=== PATIENT | male | born 1990 | race Two or more races ===

== ENCOUNTER 2024-11-10 11:24 | Emergency (ER) | payer MEDICAID, SELFPAY ==
[2024-11-10 11:54] VITALS: BP 128/83; PULSE 98; RESP 20; TEMP 37.3; O2SAT 95; BMI 34.4
--- NOTE | 2024-11-10 12:11 | PD.EDDIZZY ---
ED Dizzyness RME/HPI General Chief Complaint: Dizziness Stated Complaint: DIZZY, SHAKINESS, STIFF HANDS/FEET X 3 DAYS Time Seen by Provider: 11/10/24 12:06 Arrival date/time: 11/10/24 11:24 RME / HPI RME / HPI Narrative: 34-year-old male patient came in for evaluation regarding dizziness. Onset of symptoms about 3 days prior to ER visit as sudden onset of dizziness, shakiness, and noticed also tingling sensation bilateral upper and lower extremity. Patient denies any headache denies any focal neurologic deficit. Denies any head trauma or fall denies any fever. Denies any other complaints. Patient is taking hypertension medication. Related Data Previous Rx's ?Medication ?Instructions ?Recorded ibuprofen 800 mg tablet 800 mg PO TID PRN pain #30 tabs 11/10/24 meclizine 50 mg tablet 50 mg PO BID PRN dizziness #20 tabs 11/10/24 Allergies Allergy/AdvReac Type Severity Reaction Status Date / Time No Known Allergies Allergy Verified 11/10/24 11:29 Review of Systems Review of Systems Narrative Review of Systems: Review of system reviewed and within normal limits except mentioned in HPI ED Exam Narrative Physical exam: VITAL SIGNS: Reviewed. GENERAL APPEARANCE: Alert and interactive, follows commands, no acute distress, HEAD AND FACE: Non-traumatic. ENT: PERRL, pink conjunctivitis, eyelid no trauma, Mucous membrane moist. NECK: Supple, nontender, no nuchal rigidity. CHEST: No tenderness, no crepitus, no paradoxical movement, no retractions. LUNGS: Clear, well ventilated, symmetric, no rales, no wheezing, no ronchi, no stridor, good breath sounds bilaterally. HEART: Regular rate, regular rhythm, no murmur, no gallops. ABDOMEN: Soft, positive bowel sounds, nondistended, no guarding, nontender, no rebound, no masses, RECTAL: Deferred. GENITAL: Deferred. NEUROLOGICAL: Gross motor function intact sensory function intact, Appropriate for age. MUSCULOSKELETAL: low back nontender, full range of motion. EXTREMITIES: Nontender, full range of motion. SKIN: Color pink, dry, no rash, no lacerations, no abrasions, no contusions. LYMPHATICS: Deferred. Course Quality Measures none Orders Category Date Time Status EKG (ED ONLY) *Do not use* NOW Care 11/10/24 12:[address] head/brain wo con Stat Exams 11/10/24 12:13 Completed EKG (ED Only) Stat Exams 11/10/24 12:14 Draft CBC Stat Lab 11/10/24 12:24 Completed Comprehensive Metabolic Panel Stat Lab 11/10/24 12:24 Completed Partial Thromboplastin Time Stat Lab 11/10/24 12:24 Completed Troponin I Stat Lab 11/10/24 12:24 Completed Urinalysis, C/S if Indicated Stat Lab 11/10/24 12:36 Completed Acetaminophen Tab [Tylenol ES Tab] Med 11/10/24 12:13 Discontinued 1,000 mg PO X1 ONE Meclizine HCl [Antivert] Med 11/10/24 12:13 Discontinued 50 mg PO X1 ONE Vital Signs Vital signs: Vital Signs Temperature 99.1 F 11/10/24 11:54 Pulse Rate 98 11/10/24 11:54 Respiratory Rate 20 11/10/24 11:54 Blood Pressure 128/83 11/10/24 11:54 Pulse Oximetry (%) 95 11/10/24 11:54 Oxygen Delivery Method Room Air 11/10/24 11:54 Dizziness MDM Narrative MDM Narrative:: 34-year-old male patient came in for evaluation regarding dizziness. Onset of symptoms about 3 days prior to ER visit as sudden onset of dizziness, shakiness, and noticed also tingling sensation bilateral upper and lower extremity. Patient denies any headache denies any focal neurologic deficit. Denies any head trauma or fall denies any fever. Denies any other complaints. Patient is taking hypertension medication. CT scan of the head came back unremarkable. Patient's workup today all came back normal including EKG that showed normal sinus rhythm, ventricular rate of 91 bpm, no ST segment elevation or depression noted. Patient was given Tylenol and meclizine with significant improvement of symptoms. Patient appears nontoxic and hemodynamically stable .Decision to discharge the patient. The patient/family was given an opportunity to ask questions and understood their discharge instructions. Discharge instructions specifically included follow up provider and time frame, current and/or new medications and possible side effects, indications for sooner follow up or return to the emergency department, and the expected course of current diagnosis. Patient reports feeling better as well and giving evidence of significant clinical improvement, I believe patient is now a candidate for discharge. Patient data External records reviewed:: None Clinical information provided by:: patient Social determinants that could affect healthcare access:: none Patient has the following chronic illnesses:: None How is presenting disease/condition affected by chronic disease/condition?: no chronic disease Evaluation data The following diagnostics were reviewed and interpreted by me:: lab results, radiology exam(s) and EKG tracing(s) Lab and/or radiology exams considered but not ordered:: none Interpretation Summary: See results in [facility] Medications / Prescriptions Medications or Prescriptions considered but not ordered:: None Medication administrations:: Medication Administration History Discontinued Medications Acetaminophen (Acetaminophen 500 Mg Tablet) 1,000 mg PO X1 ONE Stop: 11/10/24 12:14 Last Admin: 11/10/24 12:23 Dose: 1,000 mg Documented By: LUCA Meclizine HCl (Meclizine Hcl 25 Mg Tablet) 50 mg PO X1 ONE Stop: 11/10/24 12:14 Last Admin: 11/10/24 12:23 Dose: 50 mg Documented By: LUCA Meclizine and Tylenol Consultations Consultation(s) initiated? (list below): No Diagnosis Dizziness Differential Diagnosis: other (Paresthesia, dizziness, intracranial bleed, intracranial tumor) Most likely diagnosis given after review of the tests above:: Dizziness, paresthesia Admission Indicated Admission indicated?: not indicated Admission Request Was there a request for admission?: No Disposition Plan Disposition Plan: Discharge Discharge Attestation Discharge Attestation: The patient was given an opportunity to ask questions and understood the discharge instructions. Discharge instructions specifically effects, indications for sooner follow up or return to the emergency department, and the expected course of current diagnosis. Patient condition: Stable Discharge Plan Plan Patient Disposition: HOME (Self Care) Discharge Disposition comment: Stable Prescriptions/Referrals Prescriptions/Med Rec: New ibuprofen 800 mg tablet 800 mg PO TID PRN (Reason: pain) Qty: 30 0RF meclizine 50 mg tablet 50 mg PO BID PRN (Reason: dizziness) Qty: 20 0RF Referrals: Eduardo Stephens MD [Primary Care Provider] - In 1 week Problem List Clinical Impression: Dizziness, Paresthesia Patient/Caregiver Discharge Instructions Discharge Activity: activity as tolerated Education Materials: Vertigo Medicine Tx, ED Paraesthesias Additional Instructions: Thank you for the opportunity for serving you today. You are stable for discharged . You are advised to: Follow-up with your PCP in 1 to 2 days Return to ED for worsening of symptoms Increase oral fluids Take medication as prescribed Print Language: Tamazight Stand Alone Forms: [employer] Award Info., Patient Portal Info Letter PA/[employer]PER[employer] Supervising Physician ANGEL/TAVON Supervising Physician: MD fela
--- NOTE | 2024-11-10 12:13 | XR_ITS ---
Examination: CT brain head without contrast. 2-D sagittal coronal reconstructions Date and time of exam:November 10, 2024 1236 hours INDICATIONS: Dizziness with tremors and beginning 3 days ago CTDI: vol (mGy):55.6 DLP: (mGycm):1108 Technique: Multiple CT axial sections of the brain have been obtained, 5 mm slice thickness. Contrast has not been administered. 2-D sagittal, coronal reconstructions have been obtained Low dose protocols were performed. One or more of the following dose reduction techniques were used; automated exposure control, adjustment of the mA and/or KV according to patient size, use of iterative reconstruction technique. Findings: No significant ventricular enlargement. Intra-axial or extra-axial hemorrhage density is not seen. No mass effect or midline shift Basal cisterns are not remarkable. Fourth ventricle is midline. Cranial vault intact. Impression: Negative for acute hemorrhage, mass effect or midline shift Advise clinical correlation follow-up accordingly
--- NOTE | 2024-11-10 12:14 | EKG_ITS ---
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
[2024-11-10] MEDS: MECLIZINE HCL 25 MG TABLET 50 MG PO (12:23)
[2024-11-10] MEDS: ACETAMINOPHEN 500 MG TABLET 1000 MG PO (12:23)
[2024-11-10 12:40] LABS: Basophils # (Auto) 0.0 Thou/mm3 (0.0-0.2); Basophils % (Auto) 0 % (0-2.5); Eosinophils # (Auto) 0.4 Thou/mm3 (0.0-0.5); Eosinophils % (Auto) 3 % (0-10); Hematocrit 46.0 % (41.0-53.0); Hemoglobin 16.2 g/dL (13.5-16.0); Immature Granulocytes Auto 0.16 Thou/mm3 (0.00-0.00); Lymphocytes # (Auto) 3.2 Thou/mm3 (1.0-4.8); Lymphocytes % (Auto) 27 % (10-50); Mean Corpuscular HGB Conc 35.2 g/dl (31.0-37.0); Mean Corpuscular Hemoglobin 32.0 pg (25.0-35.0); Mean Corpuscular Volume 91 fL (80-100); Monocytes # (Auto) 0.8 Thou/mm3 (0.0-0.8); Monocytes % (Auto) 6 % (0-12); Neutrophils # (Auto) 7.4 Thou/mm3 (1.8-7.7); Neutrophils % (Auto) 62 % (37-80); Nucleated Red Blood Cell # 0.00 Thou/mm3 (0.00-0.00); Nucleated Red Blood Cell % 0 /100 WBC (0); Platelet Count 218 Thou/mm3 (140-440); RDW Standard Deviation 42.7 fL (35.1-43.9); Red Blood Count 5.07 Miln/mm3 (4.50-5.90); White Blood Count 11.8 Thou/mm3 (3.8-10.6)
[2024-11-10 12:56] LABS: Partial Thromboplastin Time 27.0 Seconds (22.0-36.0)
[2024-11-10 13:00] LABS: Alanine Aminotransferase 155 U/L (10-49); Albumin, Serum 4.5 gm/dL (3.5-5.0); Albumin/Globulin Ratio 1.1 (1.2-2.2); Alkaline Phosphatase 104 U/L (46-116); Anion Gap 7 (7-16); Aspartate Amino Transferase 115 U/L (0-34); BUN/Creatinine Ratio 7 Ratio (12-20); Bilirubin,Total 0.7 mg/dL (0.3-1.2); Blood Urea Nitrogen 6 mg/dL (9-23); Calcium 9.2 mg/dL (8.3-10.6); Calcium (Corrected) 9.2 mg/dL (8.5-10.1); Carbon Dioxide 31.3 mMol/L (20.0-31.0); Chloride 102 mMol/L (98-107); Creatinine (Component) 0.9 mg/dL (0.6-1.3); Estimated Creatinine Clearance 135.6 mL/min (>60); Globulin 4.0 gm/dL (2.3-3.5); Glucose 85 mg/dL (74-106); Osmolality,Calculated 276 (275-295); Potassium 3.7 mMol/L (3.4-5.1); Sodium 140 mMol/L (136-145); Total Protein 8.5 gm/dL (5.7-8.2); Troponin I < 0.020 ng/mL (0.0-0.045); eGFR > 60 See Note
[2024-11-10 13:02] LABS: Collection Type, Urine Clean Catch
[2024-11-10 13:12] LABS: Bilirubin,Urine Negative (Negative); Blood,Urine Negative (Negative); Clarity,Urine Clear (Clear/Hazy); Color,Urine Yellow (Lt Yel-Yel); Culture Indicated,Urine Not Indicated; Glucose, Urine Negative (Negative); Ketones,Urine Negative (Negative); Leukocyte Esterase,Urine Negative (Negative); Nitrite,Urine Negative (Negative); PH,Urine 5.5 (5.0-7.0); Protein,Urine Negative (Neg - Trace); RBC,Urine 4 /hpf (0-3); Specific Gravity,Urine 1.018 (1.001-1.035); Squamous Epithelial Cell,Urine < 1 /hpf (0-5); Urobilinogen,Urine Negative mg/dL (0.0-1.0); WBC,Urine 2 /hpf (0-5)
[2024-11-10 14:11] VITALS: BP 120/84; PULSE 76; RESP 20; TEMP 36.8; O2SAT 97
== END 2024-11-10 14:52 | disposition home or self-care (01) ==
PROVIDERS: Nurse Practitioner Family; Emergency Provider Family Medicine; PCP Family Medicine
DX: R42 Dizziness and giddiness (principal); R20.2 Paresthesia of skin
CPT/HCPCS: 36415; 70450; 80053; 81001; 84484; 85025; 85730; 93005; 99283; A9270

== ENCOUNTER 2025-01-05 08:43 | Emergency (ER) | payer MEDICAID, SELFPAY ==
[2025-01-05 08:48] VITALS: BP 133/92; PULSE 76; RESP 20; TEMP 37; O2SAT 97; BMI 33.4
--- NOTE | 2025-01-05 09:13 | XR_ITS ---
Examination: CT abdomen and pelvis without contrast. Coronal 3-D reconstructions. Sagittal 2-D reconstructions. Date and time of exam:January 05, 2025 0953 hours On several right-sided flank pain beginning this morning CTDI: vol (mGy): 9.63 DLP: (mGycm): 621 Technique: Axial images of the abdomen have been obtained, 3 mm slice thickness Intravenous contrast material has not been administered. Low dose protocols were performed. One or more of the following dose reduction techniques were used; automated exposure control, adjustment of the mA and/or KV according to patient size, use of iterative reconstruction technique. Findings: No focal liver or splenic lesions No gallstones No pancreatic or adrenal mass No renal or ureteral calculi, no hydronephrosis Aorta normal size No bowel obstruction No pericecal inflammatory change Scattered colonic diverticulosis Contracted urinary bladder No prostatomegaly Mild chronic compression L1 IMPRESSION: No renal or ureteral calculi, no hydronephrosis No CT findings of appendicitis or bowel obstruction
[2025-01-05 09:24] LABS: Basophils # (Auto) 0.0 Thou/mm3 (0.0-0.2); Basophils % (Auto) 0 % (0-2.5); Eosinophils # (Auto) 0.3 Thou/mm3 (0.0-0.5); Eosinophils % (Auto) 3 % (0-10); Hematocrit 43.2 % (41.0-53.0); Hemoglobin 15.3 g/dL (13.5-16.0); Immature Granulocytes Auto 0.04 Thou/mm3 (0.00-0.00); Lymphocytes # (Auto) 2.1 Thou/mm3 (1.0-4.8); Lymphocytes % (Auto) 26 % (10-50); Mean Corpuscular HGB Conc 35.4 g/dl (31.0-37.0); Mean Corpuscular Hemoglobin 31.8 pg (25.0-35.0); Mean Corpuscular Volume 90 fL (80-100); Monocytes # (Auto) 0.4 Thou/mm3 (0.0-0.8); Monocytes % (Auto) 5 % (0-12); Neutrophils # (Auto) 5.4 Thou/mm3 (1.8-7.7); Neutrophils % (Auto) 65 % (37-80); Nucleated Red Blood Cell # 0.00 Thou/mm3 (0.00-0.00); Nucleated Red Blood Cell % 0 /100 WBC (0); Platelet Count 188 Thou/mm3 (140-440); RDW Standard Deviation 40.9 fL (35.1-43.9); Red Blood Count 4.81 Miln/mm3 (4.50-5.90); White Blood Count 8.2 Thou/mm3 (3.8-10.6)
[2025-01-05 09:33] LABS: Collection Type, Urine Clean Catch
[2025-01-05 09:41] LABS: Bacteria,Urine Rare; Bilirubin,Urine Negative (Negative); Blood,Urine Negative (Negative); Clarity,Urine Clear (Clear/Hazy); Color,Urine Yellow (Lt Yel-Yel); Culture Indicated,Urine Not Indicated; Glucose, Urine Negative (Negative); Hyaline Casts,Urine < 1 /hpf (0-1); Ketones,Urine Negative (Negative); Leukocyte Esterase,Urine Negative (Negative); Nitrite,Urine Negative (Negative); PH,Urine 6.0 (5.0-7.0); Protein,Urine Trace (Neg - Trace); RBC,Urine 1 /hpf (0-3); Specific Gravity,Urine 1.029 (1.001-1.035); Squamous Epithelial Cell,Urine < 1 /hpf (0-5); Urobilinogen,Urine Negative mg/dL (0.0-1.0); WBC,Urine 1 /hpf (0-5)
[2025-01-05 09:42] LABS: Alanine Aminotransferase 107 U/L (10-49); Albumin, Serum 4.3 gm/dL (3.5-5.0); Albumin/Globulin Ratio 1.3 (1.2-2.2); Alkaline Phosphatase 101 U/L (46-116); Anion Gap 10 (7-16); Aspartate Amino Transferase 77 U/L (0-34); BUN/Creatinine Ratio 8 Ratio (12-20); Bilirubin,Total 0.9 mg/dL (0.3-1.2); Blood Urea Nitrogen 6 mg/dL (9-23); Calcium 9.0 mg/dL (8.3-10.6); Calcium (Corrected) 9.0 mg/dL (8.5-10.1); Carbon Dioxide 29.3 mMol/L (20.0-31.0); Chloride 104 mMol/L (98-107); Creatinine (Component) 0.8 mg/dL (0.6-1.3); Estimated Creatinine Clearance 150.4 mL/min (>60); Globulin 3.4 gm/dL (2.3-3.5); Glucose 99 mg/dL (74-106); Lipase 28 U/L (12-53); Osmolality,Calculated 282 (275-295); Potassium 3.7 mMol/L (3.4-5.1); Sodium 143 mMol/L (136-145); Total Protein 7.7 gm/dL (5.7-8.2); eGFR > 60 See Note
--- NOTE | 2025-01-05 11:04 | EDNOTE_ITS ---
ED Abdominal Pain RME/HPI General Chief Complaint: Abdominal Pain Stated complaint: Right lower abd. pain x 1 wk Time seen by provider: 01/05/25 08:47 Arrival date/time: 01/05/25 08:43 34-year-old male presents to the emergency department today today for complaints of right side abdominal pain for 1 to 2 weeks patient ports no fever nausea or vomiting no chest pain or shortness of breath Limitations: no limitations Related Data Previous Rx's ?Medication ?Instructions ?Recorded ibuprofen 800 mg tablet 800 mg PO TID PRN pain #30 t abs 11/10/24 meclizine 50 mg tablet 50 mg PO BID PRN dizziness # 20 tabs 11/10/24 metoclopramide HCl 10 mg tablet 10 mg PO Q6H PRN nause a and 01/05/25 (Reglan) vomiting #30 tabs Allergies Allergy/AdvReac Type Severity Reaction Status Date / Time No Known Allergies Allergy Verified 01/05/25 08:45 Review of Systems Review of Systems Systems Reviewed: All systems reviewed, normal except as documented Constitutional Constitutional: Reports system reviewed and no additional complaints, except as documented, Denies fever(s) and Denies headache(s) Eyes Eyes: Reports system reviewed and no additional complaints, except as documented and Denies blurry vision ENT Ears, Nose, Mouth, and Throat: Reports system reviewed and no additional complaints, except as documented, Denies headache(s), Denies nasal congestion and Denies nasal discharge Cardiovascular Cardiovascular: Reports system reviewed and no additional complaints, except as documented, Denies chest pain and Denies dyspnea Respiratory Respiratory: Reports system reviewed and no additional complaints, except as documented, Denies chest congestion, Denies cough and Denies dyspnea Gastrointestinal Gastrointestinal: Reports system reviewed and no additional complaints, except as documented and Reports abdominal pain Integumentary/Breasts Skin/Breast: Reports system reviewed and no additional complaints, except as documented and Denies rash Neurologic Neurologic: Reports system reviewed and no additional complaints, except as documented, Reports as per HPI and Denies headache(s) Past Medical History Social History SMOKING STATUS: Never smoker ED Exam General Limitations: Present no limitations General appearance: Present alert and in no apparent distress Head Head exam: Present atraumatic, normocephalic and normal inspection Eye Eye exam: Present normal appearance, PERRL and EOMI ENT ENT exam: Present normal exam, normal oropharynx and mucous membranes moist Neck Neck exam: Present normal inspection, full ROM and trachea midline Chest Chest inspection: Present normal inspection and symmetric chest wall rise Respiratory Respiratory exam: Present normal lung sounds bilaterally Cardiovascular Cardiovascular exam: Present regular rate, normal rhythm and normal heart sounds Abdominal Exam Abdominal exam: Present soft, tenderness and normal bowel sounds; Absent distention, guarding, rebound, rigidity or Lara's sign Abdominal tenderness: Present RLQ Extremities Exam Extremities exam: Present normal inspection and full ROM Back Exam Back exam: Present normal inspection and full ROM Neurological Exam Neurological exam: Present alert, oriented X3 and CN II-XII intact Psychiatric Psychiatric exam: Present normal affect and normal mood Skin Skin exam: Present warm, dry, intact and normal color Course Quality Measures none Orders Category Date Time Status CT abdomen pelvis wo con Stat Exams 01/05/25 09:13 Completed CBC Stat Lab 01/05/25 09:15 Completed Comprehensive Metabolic Panel Stat Lab 01/05/25 09:15 Completed Lipase Stat Lab 01/05/25 09:15 Completed UA, C/S IF [Urinalysis, C/S if Indicated] Stat Lab 01/05/25 09:25 Completed Vital Signs Vital signs: Vital Signs Temperature 98.6 F 01/05/25 08:48 Pulse Rate 76 01/05/25 08:48 Respiratory Rate 20 01/05/25 08:48 Blood Pressure 133/92 H 01/05/25 08:48 Pulse Oximetry (%) 97 01/05/25 08:48 Oxygen Delivery Method Room Air 01/05/25 08:48 O2 saturation 97% on room air within normal limits Abdominal Pain MDM MDM Narrative MDM Narrative:: 34-year-old male presents to the emergency department today today for complaints of right side abdominal pain for 1 to 2 weeks patient ports no fever nausea or vomiting no chest pain or shortness of breath On exam patient well-appearing patient does not appear look toxic distress Lab work and imaging obtained no acute emergent findings noted Patient hemodynamically stable Patient is mild tenderness to lower abdomen no significant tenderness negative Lara sign negative McBurney point tenderness Patient discharged home in no distress to follow-up with primary care doctor in the next 24 to 48 hours and for any worsening symptoms to return to the ER immediately Patient data External records reviewed:: [facility] previous records Clinical information provided by:: patient Social determinants that could affect healthcare access:: none Patient has the following chronic illnesses:: See history How is presenting disease/condition affected by chronic disease/condition?: uneffected by Evaluation data The following diagnostics were reviewed and interpreted by me:: lab results and radiology exam(s) Lab and/or radiology exams considered but not ordered:: Labs radiology obtained Interpretation Summary: Reviewed by me Medications / Prescriptions Medications or Prescriptions considered but not ordered:: Given Medication administrations:: Given Consultations Consultation(s) initiated? (list below): No Diagnosis Differential diagnosis abdominal pain: abdominal pain, acute appendicitis and calculus of kidney Most likely diagnosis given after review of the tests above:: Abdominal pain Admission Indicated Admission indicated?: not indicated Admission Request Was there a request for admission?: No Disposition Plan Disposition Plan: Discharge Discharge Attestation Discharge Attestation: The patient and all family members were given an opportunity to ask questions and understood the discharge instructions. Discharge instructions specifically effects, indications for sooner follow up or return to the emergency department, and the expected course of current diagnosis. Patient condition: Stable Discharge Plan Plan Patient Disposition: HOME (Self Care) Discharge Disposition comment: Stable Prescriptions/Referrals Prescriptions/Med Rec: New metoclopramide HCl [Reglan] 10 mg tablet 10 mg PO Q6H PRN (Reason: nausea and vomiting) Qty: 30 0RF No Action ibuprofen 800 mg tablet 800 mg PO TID PRN (Reason: pain) Qty: 30 0RF meclizine 50 mg tablet 50 mg PO BID PRN (Reason: dizziness) Qty: 20 0RF Referrals: No Primary/Family,Physician [Primary Care Provider] - In 1 week Problem List Clinical Impression: Abdominal pain Patient/Caregiver Discharge Instructions Education Materials: Abdominal Pain Additional Instructions: Please follow up with your primary care doctor in the next 24-48hrs for any worsening symptoms return here immediately Print Language: Hungarian Stand Alone Forms: [employer] Award Info., Work/School Release, Patient Portal Info Letter PA/TAVON Supervising Physician PA/TAVON Supervising Physician: Dr. barkley
== END 2025-01-05 12:55 | disposition home or self-care (01) ==
PROVIDERS: Nurse Practitioner Primary Care; Emergency Provider Emergency Medicine
DX: R10.31 Right lower quadrant pain (principal)
CPT/HCPCS: 36415; 74176; 80053; 81001; 83690; 85025; 99283

== ENCOUNTER 2025-02-24 06:20 | Emergency (ER) | payer MEDICAID, SELFPAY ==
[2025-02-24 06:21] VITALS: BP 143/91; PULSE 90; RESP 18; TEMP 36.9; O2SAT 95
--- NOTE | 2025-02-24 06:41 | XR_ITS ---
Examination: Abdomen sonogram, Limited Date and time of exam: February 24, 2025, 0732 hours INDICATIONS: Epigastric pain and bloating beginning 3 days ago Technique: Real-time toro scale transabdominal sonographic images of the upper abdomen obtained. Findings: Normal gallbladder Normal common bile duct 0.5 cm Pancreatic tail appears prominent 3.9 cm Liver 18.2 cm fatty infiltration Normal hepatopetal portal venous flow Patent IVC IMPRESSION: Normal gallbladder Prominent pancreatic head Moderate hepatomegaly with fatty infiltration No common bile duct stones
--- NOTE | 2025-02-24 06:41 | XR_ITS ---
Examination: CT abdomen and pelvis without contrast. Coronal 3-D reconstructions. Sagittal 2-D reconstructions. Date and time of exam: February 24, 2025, 0709 hours, comparison 01/05/2025 INDICATIONS: Epigastric pain today CTDI: vol (mGy): 10.7 DLP: (mGycm): 637 Technique: Axial images of the abdomen have been obtained, 3 mm slice thickness Intravenous contrast material has not been administered. Low dose protocols were performed. One or more of the following dose reduction techniques were used; automated exposure control, adjustment of the mA and/or KV according to patient size, use of iterative reconstruction technique. Findings: No focal liver or splenic lesions, hepatomegaly 20 cm No gallstones No pancreatic or adrenal mass No renal or ureteral calculi, no hydronephrosis No bowel obstruction No pericecal inflammatory change No diverticulitis Normal seminal vesicles No prostatomegaly Contracted urinary bladder with mild urinary bladder wall thickening Prominent osteopenia IMPRESSION: Hepatomegaly, 20 cm No renal or ureteral calculi, no hydronephrosis Negative for pancreatitis No CT findings of appendicitis bowel obstruction or diverticulitis
--- NOTE | 2025-02-24 06:42 | EDNOTE_ITS ---
ED Abdominal Pain RME/HPI General Chief Complaint: Abdominal Pain Stated complaint: upper epigastric pain Time seen by provider: 02/24/25 06:23 Arrival date/time: 02/24/25 06:20 34-year-old male with no known medical history presents to the emergency room with a chief complaint of epigastric pain that radiates diffusely to his whole abdomen x 4 days. Patient states he is having nausea vomiting. Source: patient Mode of arrival: ambulatory Limitations: no limitations Related Data Previous Rx's ?Medication ?Instructions ?Recorded ibuprofen 800 mg tablet 800 mg PO TID PRN pain #30 t abs 11/10/24 meclizine 50 mg tablet 50 mg PO BID PRN dizziness # 20 tabs 11/10/24 metoclopramide HCl 10 mg tablet 10 mg PO Q6H PRN nause a and 01/05/25 (Reglan) vomiting #30 tabs Allergies Allergy/AdvReac Type Severity Reaction Status Date / Time No Known Allergies Allergy Verified 01/05/25 08:45 Review of Systems Review of Systems Systems Reviewed: All systems reviewed, normal except as documented Constitutional Constitutional: Reports system reviewed and no additional complaints, except as documented, Denies fatigue, Denies fever(s), Denies headache(s) and Denies weakness Eyes Eyes: Reports system reviewed and no additional complaints, except as documented, Denies blurry vision and Denies change in vision ENT Ears, Nose, Mouth, and Throat: Reports system reviewed and no additional complaints, except as documented, Denies otalgia, Denies headache(s), Denies nasal congestion, Denies throat swelling and Denies vertigo Cardiovascular Cardiovascular: Reports system reviewed and no additional complaints, except as documented, Denies chest pain, Denies dyspnea and Denies dyspnea on exertion Respiratory Respiratory: Reports system reviewed and no additional complaints, except as documented, Denies chest congestion, Denies cough, Denies dyspnea, Denies dyspnea on exertion and Denies wheezing Gastrointestinal Gastrointestinal: Reports system reviewed and no additional complaints, except as documented, Reports abdominal pain, Reports cramping, Reports dyspepsia, Reports excessive flatus, Reports heartburn, Reports nausea and Reports vomiting Genitourinary Genitourinary: Reports system reviewed and no additional complaints, except as documented, Denies dysuria and Denies hematuria Musculoskeletal Musculoskeletal: Reports system reviewed and no additional complaints, except as documented and Denies back pain Integumentary/Breasts Skin/Breast: Reports system reviewed and no additional complaints, except as documented and Denies wounds Neurologic Neurologic: Reports system reviewed and no additional complaints, except as documented, Denies confusion, Denies headache(s), Denies lack of coordination, Denies vertigo and Denies weakness Psychiatric Psychiatric: Reports system reviewed and no additional complaints, except as documented, Denies anxiety, Denies confusion, Denies depression, Denies par anoia, Denies suicidal ideation and Denies tactile hallucinations Endocrine Endocrine: Reports system reviewed and no additional complaints, except as documented and Denies fatigue Hematologic/Lymphatic Hematologic/Lymphatic: Reports system reviewed and no additional complaints, except as documented and Denies lymphadenopathy Allergic/Immunologic Allergic/Immunologic: Reports system reviewed and no additional complaints, except as documented, Denies throat swelling, Denies urticaria and Denies wheezing ED Exam General Limitations: Present no limitations General appearance: Present alert and in no apparent distress Head Head exam: Present atraumatic Eye Eye exam: Present normal appearance, PERRL and EOMI ENT ENT exam: Present normal exam, normal oropharynx and mucous membranes moist Neck Neck exam: Present normal inspection, full ROM and trachea midline Chest Chest inspection: Present normal inspection and symmetric chest wall rise Respiratory Respiratory exam: Present normal lung sounds bilaterally Cardiovascular Cardiovascular exam: Present regular rate, normal rhythm and normal heart sounds Abdominal Exam Abdominal exam: Present soft, tenderness, normal bowel sounds and Lara's sign; Absent distention, guarding, rebound, rigidity or tenderness at McBurney's Point Abdominal tenderness: Present RUQ, RLQ, epigastrium, diffuse and moderate; Absent LUQ or LLQ Extremities Exam Extremities exam: Present normal inspection and full ROM Back Exam Back exam: Present normal inspection and full ROM Neurological Exam Neurological exam: Present alert, oriented X3 and CN II-XII intact Psychiatric Psychiatric exam: Present normal affect and normal mood Skin Skin exam: Present warm, dry, intact and normal color Course Quality Measures none Orders Category Date Time Status CT abdomen pelvis wo con Stat Exams 02/24/25 06:41 Completed US gall bladder Stat Exams 02/24/25 06:41 Completed CBC Stat Lab 02/24/25 06:57 Completed CMP [Comprehensive Metabolic Panel] Stat Lab 02/24/25 06:57 Completed Lipase Stat Lab 02/24/25 06:57 Completed UA [Urinalysis] Stat Lab 02/24/25 07:20 Completed Urine Culture Stat Lab 02/24/25 07:20 Received HYDROcodone*/APAP 5/325 [[place] 5/325] Med 02/24/25 06:41 Discontinued 1 tab PO X1 ONE Ondansetron Odt [Zofran Odt] Med 02/24/25 06:41 Discontinued 4 mg PO X1 ONE mg Hyd/Al Hyd/Nancy Susp [Maalox Susp] Med 02/24/25 06:41 Discontinued 30 ml PO X1 ONE Vital Signs Vital signs: Vital Signs Temperature 98.5 F 02/24/25 06:21 Pulse Rate 90 02/24/25 06:21 Respiratory Rate 18 02/24/25 06:21 Blood Pressure 143/91 H 02/24/25 06:21 Pulse Oximetry (%) 95 02/24/25 06:21 Oxygen Delivery Method Room Air 02/24/25 06:21 Abdominal Pain MDM MDM Narrative MDM Narrative:: 34-year-old male with no known medical history presents to the emergency room with a chief complaint of epigastric pain that radiates diffusely to his whole abdomen x 4 days. Patient states he is having nausea vomiting. Patient is hemodynamically stable and in no apparent distress. Patient is afebrile not tachycardic not tachypneic Physical examination shows epigastric pain with palpation. Patient states he is having abdominal bloating and states the pain radiates to his whole abdomen. CT of the abdomen and pelvis was negative for any acute findings. Ultrasound of the gallbladder was negative for any acute findings The patient does not have any right lower quadrant abdominal tenderness with palpation. There is no tenderness to McBurney's point Patient was discharged and educated to follow-up with primary care provider in the next 24 to 48 hours and return to the emergency room for any evidence of worsening signs or symptoms Patient data External records reviewed:: [facility] previous records Clinical information provided by:: patient Social determinants that could affect healthcare access:: none Patient has the following chronic illnesses:: No chronic illness How is presenting disease/condition affected by chronic disease/condition?: no chronic disease Evaluation data The following diagnostics were reviewed and interpreted by me:: lab results and radiology exam(s) Lab and/or radiology exams considered but not ordered:: Labs and radiology exams considered and ordered Interpretation Summary: CT abdomen and pelvis-Findings: No focal liver or splenic lesions, hepatomegaly 20 cm No gallstones No pancreatic or adrenal mass No renal or ureteral calculi, no hydronephrosis No bowel obstruction No pericecal inflammatory change No diverticulitis Normal seminal vesicles No prostatomegaly Contracted urinary bladder with mild urinary bladder wall thickening Prominent osteopenia IMPRESSION: Hepatomegaly, 20 cm No renal or ureteral calculi, no hydronephrosis Negative for pancreatitis No CT findings of appendicitis bowel obstruction or diverticulitis Ultrasound gallbladder-Findings: Normal gallbladder Normal common bile duct 0.5 cm Pancreatic tail appears prominent 3.9 cm Liver 18.2 cm fatty infiltration Normal hepatopetal portal venous flow Patent IVC IMPRESSION: Normal gallbladder Prominent pancreatic head Moderate hepatomegaly with fatty infiltration No common bile duct stones Medications / Prescriptions Medications or Prescriptions considered but not ordered:: Medication given Medication administrations:: Medication Administration History Discontinued Medications Hydrocodone Bitart/Acetaminophen (Hydrocodone/Apap 5/325 Tablet) 1 tab PO X1 O NE Stop: 02/24/25 06:42 Last Admin: 02/24/25 07:02 Dose: 1 tab Documented By: VIDAL Al Hydrox/Mg Hydrox/Simethicone (Mg Hyd/Al Hyd/Nancy (Maalox Reg) Susp 30 Ml Udc) 30 ml PO X1 ONE Stop: 02/24/25 06:42 Last Admin: 02/24/25 07:02 Dose: 30 ml Documented By: VIDAL Ondansetron HCl (Ondansetron Odt 4 Mg Tabrap) 4 mg PO X1 ONE; Protocol Stop: 02/24/25 06:42 Last Admin: 02/24/25 07:01 Dose: 4 mg Documented By: VIDAL Medication given Consultations Consultation(s) initiated? (list below): No Diagnosis Differential diagnosis abdominal pain: abdominal pain, acute appendicitis, constipation, diverticulitis, gastroenteritis, pancreatitis and other (Maria Alejandra lithiasis/cholecystitis) Most likely diagnosis given after review of the tests above:: Gastritis Admission Indicated Admission indicated?: not indicated Admission Request Was there a request for admission?: No Disposition Plan Disposition Plan: Discharge Discharge Attestation Discharge Attestation: The patient and all family members were given an opportunity to ask questions and understood the discharge instructions. Discharge instructions specifically effects, indications for sooner follow up or return to the emergency department, and the expected course of current diagnosis. Patient condition: Stable Discharge Plan Plan Patient Disposition: HOME (Self Care) Discharge Disposition comment: Stable Prescriptions/Referrals Prescriptions/Med Rec: No Action ibuprofen 800 mg tablet 800 mg PO TID PRN (Reason: pain) Qty: 30 0RF meclizine 50 mg tablet 50 mg PO BID PRN (Reason: dizziness) Qty: 20 0RF metoclopramide HCl [Reglan] 10 mg tablet 10 mg PO Q6H PRN (Reason: nausea and vomiting) Qty: 30 0RF Referrals: No Primary/Family,Physician [Primary Care Provider] - In 1 week Problem List Clinical Impression: Gastritis Patient/Caregiver Discharge Instructions Education Materials: Treating Gastritis, Understanding Gastritis, ED Gastritis (Adult) Additional Instructions: Por favor, acuda a zafar m?dico de cabecera en las pr?ximas 24 a 48 horas. La tomograf?a computarizada de abdomen y pelvis no mostr? hallazgos agudos. La ecograf?a de la ves?cula biliar tampoco mostr? hallazgos agudos. Los an?lisis de sue y orina se encuentran dentro de los l?mites normales. Por favor, acuda a zafar m?dico de cabecera para continuar con el tratamiento. Si los signos y s?ntomas persisten, podr?a ser necesario derivarlo a un gastroenter?logo. Ante cualquier empeoramiento de los signos o s?ntomas, regrese inmediatamente a urgencias. Print Language: Korean Stand Alone Forms: [employer] Award Info., Work/School Release, Patient Portal Info Letter
[2025-02-24] MEDS: ONDANSETRON ODT 4 MG TABRAP PO (07:01)
[2025-02-24] MEDS: HYDROcodone/APAP 5/325 TABLET 1 TAB PO (07:02)
[2025-02-24] MEDS: MG HYD/AL HYD/SIME (Maalox Reg) SUSP 30 ML UDC PO (07:02)
[2025-02-24 07:05] LABS: Basophils # (Auto) 0.0 Thou/mm3 (0.0-0.2); Basophils % (Auto) 0 % (0-2.5); Eosinophils # (Auto) 0.2 Thou/mm3 (0.0-0.5); Eosinophils % (Auto) 2 % (0-10); Hematocrit 40.8 % (41.0-53.0); Hemoglobin 14.7 g/dL (13.5-16.0); Immature Granulocytes Auto 0.08 Thou/mm3 (0.00-0.00); Lymphocytes # (Auto) 2.4 Thou/mm3 (1.0-4.8); Lymphocytes % (Auto) 21 % (10-50); Mean Corpuscular HGB Conc 36.0 g/dl (31.0-37.0); Mean Corpuscular Hemoglobin 32.2 pg (25.0-35.0); Mean Corpuscular Volume 89 fL (80-100); Monocytes # (Auto) 0.6 Thou/mm3 (0.0-0.8); Monocytes % (Auto) 6 % (0-12); Neutrophils # (Auto) 8.0 Thou/mm3 (1.8-7.7); Neutrophils % (Auto) 70 % (37-80); Nucleated Red Blood Cell # 0.00 Thou/mm3 (0.00-0.00); Nucleated Red Blood Cell % 0 /100 WBC (0); Platelet Count 181 Thou/mm3 (140-440); RDW Standard Deviation 40.6 fL (35.1-43.9); Red Blood Count 4.57 Miln/mm3 (4.50-5.90); White Blood Count 11.4 Thou/mm3 (3.8-10.6)
[2025-02-24 07:28] LABS: Alanine Aminotransferase 46 U/L (10-49); Albumin, Serum 4.4 gm/dL (3.5-5.0); Albumin/Globulin Ratio 1.2 (1.2-2.2); Alkaline Phosphatase 99 U/L (46-116); Anion Gap 7 (7-16); Aspartate Amino Transferase 27 U/L (0-34); BUN/Creatinine Ratio 10 Ratio (12-20); Bilirubin,Total 0.9 mg/dL (0.3-1.2); Blood Urea Nitrogen 9 mg/dL (9-23); Calcium 9.2 mg/dL (8.3-10.6); Calcium (Corrected) 9.2 mg/dL (8.5-10.1); Carbon Dioxide 28.2 mMol/L (20.0-31.0); Chloride 106 mMol/L (98-107); Creatinine (Component) 0.9 mg/dL (0.6-1.3); Globulin 3.7 gm/dL (2.3-3.5); Glucose 102 mg/dL (74-106); Lipase 93 U/L (12-53); Osmolality,Calculated 279 (275-295); Potassium 3.7 mMol/L (3.4-5.1); Sodium 141 mMol/L (136-145); Total Protein 8.1 gm/dL (5.7-8.2); eGFR > 60 See Note
[2025-02-24 07:39] LABS: Collection Type, Urine Clean Catch
[2025-02-24 07:49] LABS: Bacteria,Urine Rare; Bilirubin,Urine Negative (Negative); Blood,Urine Negative (Negative); Clarity,Urine Clear (Clear/Hazy); Color,Urine Yellow (Lt Yel-Yel); Glucose, Urine Negative (Negative); Ketones,Urine Negative (Negative); Leukocyte Esterase,Urine Negative (Negative); Nitrite,Urine Negative (Negative); PH,Urine 6.0 (5.0-7.0); Protein,Urine 1+ (Neg - Trace); RBC,Urine 4 /hpf (0-3); Specific Gravity,Urine 1.032 (1.001-1.035); Squamous Epithelial Cell,Urine < 1 /hpf (0-5); Urobilinogen,Urine 3.0 mg/dL (0.0-1.0); WBC,Urine 2 /hpf (0-5)
[2025-02-24 10:03] VITALS: BP 134/87; PULSE 65; RESP 18; O2SAT 99
== END 2025-02-24 10:08 | disposition home or self-care (01) ==
PROVIDERS: Nurse Practitioner Family; Emergency Provider Family Medicine
DX: K29.70 Gastritis, unspecified, without bleeding (principal); K76.0 Fatty (change of) liver, not elsewhere classified
CPT/HCPCS: 36415; 74176; 76705; 80053; 81001; 83690; 85025; 87086; 99283; Q0162; A9270